=== PATIENT | female | born 1945 | race Caucasian/White ===

== ENCOUNTER 2019-04-20 07:39 | Outpatient (RCR) | payer MEDICARE, MEDICAID, SELFPAY | END 2019-05-08 00:01 | LOC: LAB 07:39 | PROVIDERS: Family Provider Family Medicine; Visit Provider Family Medicine | DX: N39.0 Urinary tract infection, site not specified (principal); A49.9 Bacterial infection, unspecified; I13.0 Hypertensive heart and chronic kidney disease with heart failure and stage 1 through stage 4 chronic kidney disease, or unspecified chronic kidney disease; E87.1 Hypo-osmolality and hyponatremia | CPT/HCPCS: 36415; 80048; 81001; 87086 ==

== ENCOUNTER 2019-05-16 10:07 | Outpatient (RCR) | payer MEDICARE, MEDICAID, SELFPAY ==
[2019-05-16 11:11] LABS: Anion Gap 17.4 (5-19); Blood Urea Nitrogen 62 mg/dL (8-23); Calcium 9.3 mg/Dl (8.8-10.2); Carbon Dioxide 31 mmol/L (22-29); Chloride 80 mmol/L (98-107); Glucose 231 mg/dL (74-106); Potassium 4.4 mmol/L (3.5-5.1); Sodium 124 mmol/L (136-145)
[2019-05-22 12:01] LABS: Basophils % 0.3 %; Eosinophils # 0.1 10^3/uL (0.0-0.8); Eosinophils % 0.6 %; Hemoglobin 10.2 g/dL (11.5-15.3); Lymphocytes % 6.5 %; Mean Corpuscular HGB Conc 31.9 g/dL (30.0-36.0); Mean Corpuscular Hemoglobin 25.1 pg (28.0-34.0); Mean Corpuscular Volume 78.6 fL (81-99); Monocytes # 0.7 10^3/uL (0.2-0.9); Monocytes % 4.8 %; Neutrophils # 13.3 10^3/uL (1.8-7.7); Neutrophils % 87.1 %; Nucleated Red Blood Cells % 0 %; Platelet Count 316 10^3/cmm (130-400); Red Blood Count 4.07 10^6/uL (4.1-5.3); Red Cell Distribution Width 14.5 % (12.1-15.1); White Blood Count 15.3 10^3/uL (4.0-10.0)
[2019-05-22 12:48] LABS: Estmated Average Glucose 171; Hemoglobin A1C 7.6 % (4.0-6.0)
[2019-05-30 10:40] LABS: Basophils # 0.1 10^3/uL (0.0-0.1); Basophils % 0.3 %; Eosinophils # 0.3 10^3/uL (0.0-0.8); Eosinophils % 1.7 %; Hematocrit 29.6 % (37.0-47.0); Hemoglobin 9.5 g/dL (11.5-15.3); Lymphocytes # 1.4 10^3/uL (0.8-4.8); Lymphocytes % 9.3 %; Mean Corpuscular HGB Conc 32.1 g/dL (30.0-36.0); Mean Corpuscular Hemoglobin 25.7 pg (28.0-34.0); Mean Platelet Volume 10.8 fL (7.4-10.4); Monocytes # 0.8 10^3/uL (0.2-0.9); Monocytes % 5.4 %; Neutrophils # 12.5 10^3/uL (1.8-7.7); Neutrophils % 82.6 %; Nucleated Red Blood Cells % 0 %; Platelet Count 365 10^3/cmm (130-400); Red Cell Distribution Width 14.6 % (12.1-15.1); White Blood Count 15.2 10^3/uL (4.0-10.0)
[2019-05-30 11:01] LABS: Anion Gap 15.7 (5-19); Blood Urea Nitrogen 44 mg/dL (8-23); Calcium 9.7 mg/Dl (8.8-10.2); Carbon Dioxide 30 mmol/L (22-29); Chloride 80 mmol/L (98-107); Glucose 121 mg/dL (74-106); Osmolality Calculated 251 mOsm/kg (285-295); Potassium 4.7 mmol/L (3.5-5.1); Sodium 121 mmol/L (136-145)
[2019-05-30 12:12] LABS: Slide Review Slide Review Perform
== END 2019-06-08 23:59 | disposition home or self-care (01) ==
LOC: LAB 10:07
PROVIDERS: Family Provider Family Medicine; Visit Provider Family Medicine
DX: E87.1 Hypo-osmolality and hyponatremia (principal); I13.0 Hypertensive heart and chronic kidney disease with heart failure and stage 1 through stage 4 chronic kidney disease, or unspecified chronic kidney disease; I25.10 Atherosclerotic heart disease of native coronary artery without angina pectoris; E55.9 Vitamin D deficiency, unspecified; E11.42 Type 2 diabetes mellitus with diabetic polyneuropathy; E11.40 Type 2 diabetes mellitus with diabetic neuropathy, unspecified
CPT/HCPCS: 80048; 83036; 85025

== ENCOUNTER 2019-06-01 11:34 | Outpatient (RCR) | payer MEDICARE, MEDICAID, SELFPAY ==
[2019-06-01 12:53] LABS: Anion Gap 14.6 (5-19); Blood Urea Nitrogen 39 mg/dL (8-23); Calcium 9.7 mg/dL (8.5-10.5); Carbon Dioxide 30 mmol/L (22-29); Chloride 79 mmol/L (98-107); Glucose 130 mg/dL (74-106); Osmolality Calculated 247 mOsm/kg (285-295); Potassium 4.6 mmol/L (3.5-5.1)
[2019-06-01 13:15] LABS: Sodium 119 mmol/L (136-145)
[2019-06-02 09:55] LABS: Anion Gap 15.9 (5-19); Blood Urea Nitrogen 37 mg/dL (8-23); Calcium 9.7 mg/dL (8.5-10.5); Carbon Dioxide 29 mmol/L (22-29); Chloride 79 mmol/L (98-107); Glucose 138 mg/dL (74-106); Osmolality Calculated 248 mOsm/kg (285-295); Potassium 4.9 mmol/L (3.5-5.1)
[2019-06-02 10:56] LABS: Sodium 119 mmol/L (136-145)
== END 2019-06-08 23:59 | disposition home or self-care (01) ==
LOC: LAB 11:34
PROVIDERS: Family Provider Family Medicine; Visit Provider Family Medicine
DX: D64.9 Anemia, unspecified (principal); N18.9 Chronic kidney disease, unspecified
CPT/HCPCS: 80048